=== PATIENT | female | born 1990 | race Caucasian/White ===

== ENCOUNTER 2016-12-29 21:18 | Emergency (ER) | payer BC ==
[2016-12-29 21:26] VITALS: BP 121/57
[2016-12-29] MEDS ORDERED: Ibuprofen TAB* 200 MG PO ONE (21:32)
--- NOTE | 2016-12-29 22:04 | RAD ---
Indication: Left ankle pain 3 views of left ankle demonstrate soft tissue swelling. There is no fracture or dislocation. No other bone or joint abnormality is identified. IMPRESSION: No fracture is noted although soft tissue swelling is identified.
--- NOTE | 2016-12-29 22:31 | UC ---
Lower Extremity/Ankle HPI - HPI Summary HPI Summary: 26 yo female with left ankle pain x 3 days see remembers twisting it about a week ago pain with wt bearing - History of Current Complaint Chief Complaint: UCLowerExtremity Stated Complaint: LFT FOOT PAIN Time Seen by Provider: 12/29/16 21:32 Hx Obtained From: Patient Hx Last Menstrual Period: 12/07/16 Onset/Duration: Gradual Onset, Lasting Days Severity Initially: Mild Severity Currently: Mild Pain Intensity: 4 Pain Scale Used: 0-10 Numeric Aggravating Factor(s): Standing, Ambulation Alleviating Factor(s): Rest Able to Bear Weight: Yes - Allergies/Home Medications Allergies/Adverse Reactions: Allergies Allergy/AdvReac Type Severity Reaction Status Date / Time No Known Allergies Allergy Verified 12/29/16 21:26 Home Medications: Home Medications ARIPiprazole TAB* [Abilify 15 MG TAB*] 15 mg PO DAILY 12/29/16 [History Confirmed 12/29/16] PMH/Surg Hx/FS Hx/Imm Hx Previously Healthy: Yes - Surgical History Surgical History: None - Family History Known Family History: Positive: Hypertension, Diabetes - Social History Alcohol Use: Rare Substance Use Type: None, Marijuana Substance Use Comment - Amount & Last Used: "maybe once a month, if that"; 10/13 Smoking Status (MU): Never Smoked Tobacco Household Exposure Type: Cigarettes - Immunization History Most Recent Influenza Vaccination: Not the Season Review of Systems Constitutional: Negative Skin: Negative Eyes: Negative ENT: Negative Respiratory: Negative Cardiovascular: Negative Gastrointestinal: Negative Genitourinary: Negative Motor: Negative Neurovascular: Negative Musculoskeletal: Arthralgia Neurological: Negative Psychological: Negative All Other Systems Reviewed And Are Negative: Yes Physical Exam Triage Information Reviewed: Yes Appearance: Well-Appearing, No Pain Distress, Well-Nourished Vital Signs: Initial Vital Signs Temp 98.3 F 12/29/16 21:22 Pulse 66 12/29/16 21:22 Resp 16 12/29/16 21:22 BP 121/57 12/29/16 21:22 Pulse Ox 100 12/29/16 21:22 Vital Signs Reviewed: Yes Eyes: Positive: Conjunctiva Clear ENT: Positive: Hearing grossly normal Respiratory: Positive: Lungs clear, Normal breath sounds, No respiratory distress, No accessory muscle use Cardiovascular: Positive: RRR, No Murmur Bowel Sounds: Positive: Present Musculoskeletal: Positive: ROM Intact, No Edema Neurological Exam: Normal Neurological: Positive: Alert Psychological Exam: Normal Skin Exam: Normal Lower Extremity Course/Dx - Differential Dx/Diagnosis Provider Diagnoses: left ankle sprain Discharge - Discharge Plan Condition: Stable Disposition: HOME Patient Education Materials: Ankle Sprain (ED), RICE Therapy (ED) Forms: *Work Release Referrals: Nimo Baker MD [Primary Care Provider] - 2 Weeks Additional Instructions: rest elevate ice tylenol or advil for pain lakhwinder gel splint
== END 2016-12-29 22:36 | disposition home or self-care (01) ==
LOC: UCCORT 21:18
DX: S93.402A Sprain of unspecified ligament of left ankle, initial encounter (principal); X50.1XXA Overexertion from prolonged static or awkward postures, initial encounter; Y93.9 Activity, unspecified; Y92.9 Unspecified place or not applicable; Z77.22 Contact with and (suspected) exposure to environmental tobacco smoke (acute) (chronic)
CPT/HCPCS: 99213; A9270-GY; G0463

== ENCOUNTER 2017-03-23 14:06 | Emergency (ER) | payer SELFPAY ==
[2017-03-23 14:40] VITALS: BP 111/58
--- NOTE | 2017-03-23 15:16 | UC ---
Skin Complaint HPI - HPI Summary HPI Summary: patient had 3 bug bites that illicited a large allergic reaction tot he left shoulder, the area is warm and hot, hx of MRSA - History of Current Complaint Chief Complaint: UCSkin Time Seen by Provider: 03/23/17 14:36 Stated Complaint: LEFT SHOULDER SKIN COMPLAINT Hx Obtained From: Patient Hx Last Menstrual Period: 02/26/17 ?: No Onset/Duration: Sudden Onset, Lasting Days Skin Exposure Onset/Duration: Days Ago Timing: Constant Onset Severity: Mild Current Severity: Moderate Location: Discrete Character: Pruritus, Hives, Redness Aggravating Factor(s): Nothing Alleviating Factor(s): Nothing Related History: Insect Bite/Sting - Allergy/Home Medications Allergies/Adverse Reactions: Allergies Allergy/AdvReac Type Severity Reaction Status Date / Time No Known Allergies Allergy Verified 03/23/17 14:40 Review of Systems Constitutional: Negative Skin: Rash Eyes: Negative ENT: Negative Respiratory: Negative Cardiovascular: Negative Gastrointestinal: Negative Genitourinary: Negative Motor: Negative Neurovascular: Negative Musculoskeletal: Negative Psychological: Negative Is Patient Immunocompromised?: No All Other Systems Reviewed And Are Negative: Yes PMH/Surg Hx/FS Hx/Imm Hx Previously Healthy: Yes - Surgical History Surgical History: None - Family History Known Family History: Positive: Hypertension, Diabetes - Social History Alcohol Use: None Substance Use Type: None Substance Use Comment - Amount & Last Used: "maybe once a month, if that"; 10/13 Smoking Status (MU): Never Smoked Tobacco Household Exposure Type: Cigarettes - Immunization History Most Recent Influenza Vaccination: 02/2017 Physical Exam Triage Information Reviewed: Yes Appearance: Well-Appearing, Well-Nourished, Pain Distress Vital Signs: Initial Vital Signs Temp 98.1 F 03/23/17 14:35 Pulse 72 03/23/17 14:35 Resp 15 03/23/17 14:35 BP 111/58 03/23/17 14:35 Pulse Ox 100 03/23/17 14:35 Vital Signs Reviewed: Yes Eye Exam: Normal ENT Exam: Normal Dental Exam: Normal Neck exam: Normal Respiratory Exam: Normal Cardiovascular Exam: Normal Abdominal Exam: Normal Bowel Sounds: Positive: Present Musculoskeletal Exam: Normal Neurological Exam: Normal Psychological Exam: Normal Skin: Positive: Other - large area of erythema on left shoulder, bite emma noted Course/Dx - Course Course Of Treatment: hx obtained, exam performed ,meds reviewed, treated for allergic reaction turned cellulitis - Differential Diagnoses - Skin Complaint Differential Diagnoses: Allergic Reaction, Cellulitis, Contact Dermatitis - Diagnoses Provider Diagnoses: cellulitis. allergic reaction Discharge - Discharge Plan Condition: Stable Disposition: HOME Prescriptions: Sulfamethox/Trimethoprim DS* [Bactrim DS 800/160 TAB*] 1 tab PO BID #14 tab predniSONE TAB* [Deltasone TAB*] 40 mg PO DAILY #14 tab Patient Education Materials: Cellulitis (ED) Referrals: Nimo Baker MD [Primary Care Provider] - Additional Instructions: 1. take the medication as prescribed. 2. If the redness grows outside the markings, follow up 3. Increase fluid intake. 4. follow up as needed.
== END 2017-03-23 15:25 | disposition home or self-care (01) ==
LOC: UCCORT 14:06
DX: T63.481A Toxic effect of venom of other arthropod, accidental (unintentional), initial encounter (principal); L03.114 Cellulitis of left upper limb; Y92.9 Unspecified place or not applicable; Z86.14 Personal history of Methicillin resistant Staphylococcus aureus infection; Z77.22 Contact with and (suspected) exposure to environmental tobacco smoke (acute) (chronic)
CPT/HCPCS: 99212; G0463

== ENCOUNTER 2017-08-18 20:01 | Emergency (ER) | payer MEDICAID ==
[2017-08-18 20:25] VITALS: BP 119/66
[2017-08-18] MEDS ORDERED: Cyclobenzaprine TAB* 10 MG PO ONE (20:46)
--- NOTE | 2017-08-18 20:56 | UC ---
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 - History of Current Complaint Chief Complaint: UCUpperExtremity Stated Complaint: NECK PAIN Time Seen by Provider: 08/18/17 20:37 Hx Obtained From: Patient Hx Last Menstrual Period: 07/29/17 Onset/Duration Of Injury/Symptoms: Weeks Timing: Constant Onset/Duration: Gradual Onset, Lasting Weeks Severity: Moderate Pain Intensity: 5 Pain Scale Used: 0-10 Numeric Character: Aching, Stiff, Spasmotic, Burning Aggravating Factors: Movement Alleviating Factors: Position Associated Signs & Symptoms: Positive: Negative - Allergies/Home Medications Allergies/Adverse Reactions: Allergies Allergy/AdvReac Type Severity Reaction Status Date / Time No Known Allergies Allergy Verified 08/18/17 20:16 Home Medications: Home Medications Ibuprofen TAB* [Advil TAB*] 600 mg PO Q6H PRN 08/18/17 [History Confirmed ] Menthol/Camphor [Icy Hot Advanced Relief 16-11 %] 1 cre EX PRN 08/18/17 [History ] PMH/Surg Hx/FS Hx/Imm Hx Previously Healthy: Yes - Surgical History Surgical History: None - Family History Known Family History: Positive: Cardiac Disease, Hypertension, Diabetes - Social History Alcohol Use: None Substance Use Type: None Substance Use Comment - Amount & Last Used: "maybe once a month, if that"; 10/13 Smoking Status (MU): Never Smoked Tobacco Household Exposure Type: Cigarettes - Immunization History Most Recent Influenza Vaccination: 02/2017 Review Of Systems Constitutional: Positive: Negative Skin: Positive: Negative Eyes: Positive: Negative ENT: Positive: Negative Respiratory: Positive: Negative Cardiovascular: Positive: Negative Gastrointestinal: Positive: Negative Genitourinary: Positive: Negative Musculoskeletal: Positive: Myalgia Neurological: Positive: Negative Psychological: Positive: Negative All Other Systems Reviewed And Are Negative: Yes Physical Exam Triage Information Reviewed: Yes Appearance: Well-Appearing, No Pain Distress, Well-Nourished Vital Signs: Initial Vital Signs Temp 98.1 F 08/18/17 20:17 Pulse 57 08/18/17 20:17 Resp 18 08/18/17 20:17 BP 119/66 08/18/17 20:17 Pulse Ox 100 02/21/18 20:17 Vital Signs Reviewed: Yes Eyes: Positive: Conjunctiva Clear ENT: Positive: Hearing grossly normal. Negative: Nasal congestion, Nasal drainage, Trismus, Muffled voice, Hoarse voice Neck: Positive: Tenderness @ - left trapezius, no midline joelle tenderness. Negative: Supple Respiratory: Positive: Lungs clear, Normal breath sounds, No respiratory distress Cardiovascular: Positive: RRR, No Murmur Musculoskeletal: Positive: ROM Intact, No Edema Neurological: Positive: Alert Psychological Exam: Normal Skin Exam: Normal Neck Pain Course/Dx - Differential Dx/Diagnosis Provider Diagnoses: left trapezius strain/spasm Discharge - Discharge Plan Condition: Stable Disposition: HOME Prescriptions: Cyclobenzaprine TAB* [Flexeril TAB*] 10 mg PO DAILY #7 tab Patient Education Materials: Cervical Strain (ED) Forms: *School Release Referrals: Nimo Baker MD [Primary Care Provider] - 1 Week (if not better) Additional Instructions: PT consult soft cervical collar when sitting/standing continue ibuprofen muscle relaxer at bedtime if needed for spasm Images Head: 1 - tender
== END 2017-08-18 21:02 | disposition home or self-care (01) ==
LOC: UCCORT 20:01
DX: S29.012A Strain of muscle and tendon of back wall of thorax, initial encounter (principal); X58.XXXA Exposure to other specified factors, initial encounter; Y93.9 Activity, unspecified; Y92.9 Unspecified place or not applicable
CPT/HCPCS: 99213; A9270-GY; G0463

== ENCOUNTER 2018-01-31 15:36 | Emergency (ER) | payer MEDICAID, OTHER ==
[2018-01-31 15:53] VITALS: BP 102/59
--- NOTE | 2018-01-31 15:58 | UC ---
UC General HPI - HPI Summary HPI Summary: pt states she got sick 5 days ago with a sore throat and L ear pain. 2 days later she developed some n/v/d. she was exposed to strep throat and wants to ensure not that. ear is now better. - History of Current Complaint Stated Complaint: ACHES, ST, EAR(S) Time Seen by Provider: 01/31/18 15:51 Hx Obtained From: Patient Hx Last Menstrual Period: 07/29/17 Onset/Duration: Gradual Onset Aggravating: nothing Alleviating: nothing Associated Signs & Symptoms: Positive: Cough, Diarrhea, Nausea, Vomiting. Negative: Abdominal Pain, Fever - Allergy/Home Medications Allergies/Adverse Reactions: Allergies Allergy/AdvReac Type Severity Reaction Status Date / Time No Known Allergies Allergy Verified 08/18/17 20:16 Home Medications: Home Medications Dextroamphetamine/Amphetamine [Adderall 10 mg Tablet] 10 mg PO BID 01/31/18 [ History Confirmed 01/31/18] PMH/Surg Hx/FS Hx/Imm Hx - Additional Past Medical History Additional PMH: ADHD Psychological History: Anxiety, Depression, Bipolar Disorder - Surgical History Surgical History: None - Family History Known Family History: Positive: Cardiac Disease, Hypertension, Diabetes - Social History Occupation: Employed Full-time Lives: With Family Alcohol Use: None Substance Use Type: None Substance Use Comment - Amount & Last Used: "maybe once a month, if that"; 10/13 Smoking Status (MU): Never Smoked Tobacco Household Exposure Type: Cigarettes - Immunization History Most Recent Influenza Vaccination: 02/2017 Hx Tetanus, Diphtheria Vaccination: No Vaccination Up to Date: Yes Review of Systems Constitutional: Fatigue Skin: Negative Eyes: Negative ENT: Sore Throat, Ear Ache Respiratory: Negative Cardiovascular: Negative Gastrointestinal: Vomiting, Diarrhea, Nausea Genitourinary: Negative Motor: Negative Neurovascular: Negative Musculoskeletal: Negative Neurological: Negative Psychological: Negative Is Patient Immunocompromised?: No All Other Systems Reviewed And Are Negative: Yes Physical Exam Triage Information Reviewed: Yes Vital Signs Reviewed: Yes Eyes: Positive: Conjunctiva Clear ENT: Positive: Pharynx normal, TMs normal. Negative: Nasal congestion, Nasal drainage Neck: Positive: Supple, Nontender, No Lymphadenopathy Respiratory: Positive: Lungs clear, Normal breath sounds Cardiovascular: Positive: RRR, No Murmur Abdomen Description: Positive: Nontender, No Organomegaly, Soft. Negative: Distended, Guarding Bowel Sounds: Positive: Present Musculoskeletal: Positive: ROM Intact Neurological: Positive: Alert Psychological: Positive: Age Appropriate Behavior Skin Exam: Normal Diagnostics - Laboratory Diagnostic Studies Completed/Ordered: rapid strep=neg Course/Dx - Course Course Of Treatment: non toxic, rapid strep=neg, no acute abdomen. tx supportive. - Differential Dx - Multi-Symptom Provider Diagnoses: Sore throat. vomiting. diarrhea Discharge - Sign-Out/Discharge Documenting (check all that apply): Patient Departure - Discharge Plan Condition: Stable Disposition: HOME Patient Education Materials: Pharyngitis (ED), Acute Nausea and Vomiting (ED), Acute Diarrhea (ED) Forms: *Work Release Referrals: Nimo Baker MD [Primary Care Provider] - 7 Days - Billing Disposition and Condition Condition: STABLE Disposition: Home
== END 2018-01-31 16:13 | disposition home or self-care (01) ==
LOC: UCCORT 15:36
DX: J02.9 Acute pharyngitis, unspecified (principal); R11.10 Vomiting, unspecified; R19.7 Diarrhea, unspecified
CPT/HCPCS: 87651; 99211; G0463